=== PATIENT | female | born 1995 | race Hispanic/Latino ===

== ENCOUNTER 2018-12-16 13:14 | Emergency (ER) | payer OTHER ==
--- OUTSIDE RECORDS SUMMARY | 2018-12-16 13:42 | XMS REPORT ---
:1995 [facility] Address [address] [place] [address] Dr. Kennedy [address] [place] [id number] Care Team Providers Name Role Phone Unavailable Unavailable Unavailable Problems This patient has no known problems. Allergies, Adverse Reactions, Alerts This patient has no known allergies or adverse reactions. Medications This patient has no known medications.
--- NOTE | 2018-12-16 14:59 | RAD REPORT ---
EXAM DESCRIPTION: RAD - Finger-Thumb Right - 12/16/2018 2:39 pm CLINICAL HISTORY: Laceration finger FINDINGS: Radiopaque foreign body is not seen No fracture or dislocation
--- NOTE | 2018-12-16 15:18 | EDPHYS ---
Physician Documentation [facility] Name: Melinda Moore Age: 23 yrs Sex: Female : 1995 Arrival Date: 12/16/2018 Time: 13:16 Bed 12 Private MD: ED Physician Lawrence Hunt HPI: 12/16 14:05 This 23 yrs old Female presents to ER via Ambulatory with complaints of cp Employee Health Related Complaint. 14:05 The patient or guardian reports injury, a laceration. The complaints affect the palmar cp aspect of middle phalanx of right index finger. 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 Onset: The symptoms/episode began/occurred today. Associated signs and symptoms: Pertinent negatives: cyanosis distally, decreased sensation distally. TARPER: 15:20 LMP N/A - iw Historical: - Allergies: 13:42 No Known Allergies; ss - Home Meds: 13:42 None [Active]; ss - PMHx: 13:42 None; ss - PSHx: 13:42 None; ss - Immunization history:: Adult Immunizations up to date. - Social history:: Smoking status: Patient/guardian denies using tobacco. - Ebola Screening: : Patient denies exposure to infectious person Patient denies travel to an Ebola-affected area in the 21 days before illness onset. ROS: 14:12 Skin: Positive for laceration(s), of the palmar aspect of middle phalanx of right index cp finger, Negative for heavy bleeding. 14:12 Constitutional: Negative for body aches, chills, fever, poor PO intake. cp 14:12 Cardiovascular: Negative for chest pain. 14:12 Respiratory: Negative for cough, shortness of breath, wheezing. 14:12 Abdomen/GI: Negative for abdominal pain. 14:12 Neuro: Negative for numbness, tingling, weakness. 14:12 All other systems are negative. Exam: 14:25 Constitutional: The patient appears in no acute distress, alert, awake, non-toxic, well cp developed, well nourished. 14:25 Head/Face: Normocephalic, atraumatic. cp 14:25 Musculoskeletal/extremity: ROM: full active range of motion, in the right index finger, Perfusion: the extremity is normally perfused throughout, Sensation intact. Tendon exam: specific tendon testing normal through active and passive range of motion 14:25 Skin: injury, laceration(s), of the palmar aspect of middle phalanx of right index finger, that can be described as clean, linear, without bleeding, superficial. Vital Signs: 13:42 BP 125 / 70; Pulse 82; Resp 15; Temp 97.9(TE); Pulse Ox 98% on R/A; Weight 87.09 kg; ss Height 5 ft. 2 in. (157.48 cm); Pain /; 13:42 Body Mass Index 35.12 (87.09 kg, 157.48 cm) ss MDM: 13:58 Patient medically screened. cp 15:00 Differential diagnosis: open fracture, retained foreign body, simple laceration, tendon cp injury. 15:16 Data reviewed: vital signs, nurses notes, radiologic studies, plain films. cp 15:16 Test interpretation: by ED physician or midlevel provider: xrays of right index finger cp negative for fracture and no foreign body noted. Counseling: I had a detailed discussion with the patient and/or guardian regarding: the historical points, exam findings, and any diagnostic results supporting the discharge/admit diagnosis, radiology results, to return to the emergency department if symptoms worsen or persist or if there are any questions or concerns that arise at home. Response to treatment: the patient's symptoms have markedly improved after treatment, and as a result, I will discharge patient. 12/16 14:34 Order name: Finger-Thumb Right; Complete Time: 15:04 EDPA 12/16 15:10 Interpretation: Report reviewed. 12/16 15:13 Order name: Wound dressing: please clean and dress wound; Complete Time: 15:25 cp Administered Medications: No medications were administered Disposition: 15:45 Chart complete. cp Disposition: 12/16/18 15:17 Discharged to Home. Impression: Laceration without foreign body of finger without damage to nail - right index. - Condition is Stable. - Discharge Instructions: Laceration Care, Adult. - Medication Reconciliation Form, Thank You Letter, Antibiotic Education, Prescription Opioid Use form. - Follow up: Private Physician; When: 1 - 2 days; Reason: Worsening of condition. - Problem is new. - Symptoms have improved. Addendum: 12/18/2018 04:06 Co-signature as Attending Physician, Lawrence Hunt MD. g s Signatures: Dispatcher [employer] [facility] Abimbola Myers RN RN ss Tyron Mane PA PA cp Lawrence Hunt MD MD Corrections: (The following items were deleted from the chart) 12/16 14:34 14:03 Hand Right 3 View+RAD.RAD.BRZ ordered. [facility] EDPA 15:27 15:17 12/16/2018 15:17 Discharged to Home. Impression: Laceration without foreign body ss of finger without damage to nail - right index. Condition is Stable. Forms are Medication Reconciliation Form, Thank You Letter, Antibiotic Education, Prescription Opioid Use. Follow up: Private Physician; When: 1 - 2 days; Reason: Worsening of condition. Problem is new. Symptoms have improved. cp
--- NOTE | 2018-12-16 15:18 | ER ---
Nurse's Notes [facility] Name: Melinda Moore Age: 23 yrs Sex: Female : 1995 Arrival Date: 12/16/2018 Time: 13:16 Bed 12 Private MD: Diagnosis: Laceration without foreign body of finger without damage to nail-right index Presentation: 12/16 13:41 Presenting complaint: Patient states: small paper cut to R index finger. Transition of ss care: patient was not received from another setting of care. Onset of symptoms was December 16, 2018. Risk Assessment: Do you want to hurt yourself or someone else? Patient reports no desire to harm self or others. Initial Sepsis Screen: Does the patient meet any 2 criteria? No. Patient's initial sepsis screen is negative. Does the patient have a suspected source of infection? No. Patient's initial sepsis screen is negative. Care prior to arrival: None. 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 - Social history:: Smoking status: Patient/guardian denies using tobacco. - Ebola Screening: : Patient denies exposure to infectious person Patient denies travel to an Ebola-affected area in the 21 days before illness onset. Screenin:39 Abuse screen: Denies threats or abuse. Denies injuries from another. Nutritional ss screening: No deficits noted. Tuberculosis screening: Never had TB. Fall Risk None identified. Assessment: 13:42 General: Appears in no apparent distress. comfortable, Behavior is calm, cooperative, ss Denies fever, feeling ill, fatigue, chills. Pain: Complains of pain in tip of R index finger Pain currently is 1 out of 10 on a pain scale. Quality of pain is described as tender, Pain began 30 min ago. Is continuous. Neuro: Level of Consciousness is awake, alert, obeys commands, Oriented to person, place, time, situation. Cardiovascular: Capillary refill < 3 seconds is brisk in bilateral fingers Patient's skin is warm and dry. Respiratory: Airway is patent Trachea midline Respiratory effort is even, unlabored, Respiratory pattern is regular, symmetrical. EENT: No signs and/or symptoms were reported regarding the EENT system. Derm: Skin is intact, is healthy with good turgor, Skin is dry, Skin is pink, warm \T\ dry. normal. Musculoskeletal: Circulation, motion, and sensation intact. Range of motion: intact in all extremities. Injury Description: Abrasion sustained to palmar aspect of distal phalanx of right index finger is clean, not bleeding. < 0.5 cm in length. Pt reports she cleansed wound with warm, soapy water prior to arrival. Vital Signs: 13:42 BP 125 / 70; Pulse 82; Resp 15; Temp 97.9(TE); Pulse Ox 98% on R/A; Weight 87.09 kg; ss Height 5 ft. 2 in. (157.48 cm); Pain 1/10; 13:42 Body Mass Index 35.12 (87.09 kg, 157.48 cm) ED Course: 13:16 Patient arrived in ED. rg4 13:39 No provider procedures requiring assistance completed. Patient did not have IV access ss during this emergency room visit. 13:39 Patient has correct armband on for positive identification. Bed in low position. Call ss light in reach. 13:42 Triage completed. ss 13:42 Arm band placed on right wrist. ss 13:58 Tyorn Maen PA is PHCP. cp 13:58 Lawrence Hunt MD is Attending Physician. cp 14:38 X-ray completed. Portable x-ray completed in exam room. Patient tolerated procedure jb2 well. 14:39 Finger-Thumb Right In Process Unspecified. EDMS 15:16 Thu Giang, ERA is Primary Nurse. iw 15:20 Wound care: to abrasion, located on palmar aspect of distal phalanx of right index ss finger was cleaned with soap and water, dressed with Neosporin, band aid. Administered Medications: No medications were administered Outcome: 15:17 Discharge ordered by . cp 15:25 Discharged to home ambulatory. ss 15:25 Condition: good 15:25 Discharge instructions given to patient, Instructed on discharge instructions, follow up and referral plans. wound care, Demonstrated understanding of instructions, follow-up care. 15:27 Patient left the ED. ss Signatures: Dispatcher [employer] EDMynor Skelton jb2 Thu Giang RN RN iw Smirch, Shelby, RN RN ss Page, Corey, PA PA cp Garcia, Rubi rg4
[2018-12-16 15:32] VITALS: BP 125/70; TEMP 97.9; O2SAT 98
== END 2018-12-16 15:27 | disposition home or self-care (01) ==
LOC: ER 13:14
DX: S61.210A Laceration without foreign body of right index finger without damage to nail, initial encounter (principal); W25.XXXA Contact with sharp glass, initial encounter; Y93.89 Activity, other specified; Y92.89 Other specified places as the place of occurrence of the external cause; Y99.8 Other external cause status
CPT/HCPCS: 99283